=== PATIENT | male | born 1975 | race Caucasian/White ===

== ENCOUNTER 2023-07-21 11:43 | Day surgery (SDC) | payer MEDICAID ==
[2023-07-21] VITALS (11 sets, daily range): BP systolic 132–153; BP diastolic 78–99; PULSE 77–90; RESP 14–16; TEMP 98.1; O2SAT 94–100
[~2023-07-21] VITALS: Ht 170.2 cm; Wt 79.5 kg
[2023-07-21] MEDS ORDERED: NO HOME MEDS (11:59)
[2023-07-21 12:49] LABS: BASOPHILS % (AUTO) 0.4 % (0-1); EOSINOPHILS # (AUTO) 0.2 X10'3 (0-0.9); EOSINOPHILS % (AUTO) 1.8 % (0-6); HEMATOCRIT 42.7 % (42.0-52.0); LYMPHOCYTES # (AUTO) 2.3 X10'3 (1.1-4.8); LYMPHOCYTES % (AUTO) 27.1 % (21-51); MEAN CORPUSCULAR HEMOGLOBIN 30.6 PG (27.0-31.0); MEAN CORPUSCULAR VOLUME 87.4 FL (78-98); MEAN PLATELET VOLUME 7.8 FL (7.4-10.4); MONOCYTES # (AUTO) 0.7 X10'3 (0-0.9); MONOCYTES % (AUTO) 8.1 % (2-12); NEUTROPHILS # (AUTO) 5.2 X10'3 (1.8-7.7); NEUTROPHILS % (AUTO) 62.6 % (42-75); PLATELET COUNT 243 X10'3 (140-440); RED BLOOD COUNT 4.89 X10'6 (4.70-6.10); RED CELL DISTRIBUTION WIDTH 13.3 % (11.5-14.5); WHITE BLOOD COUNT 8.4 X10'3 (4.5-11.0)
[2023-07-21] MEDS ORDERED: LIDOcaine 1% (10mg/ml)w/preservative inj. 20ml MDV ONE (12:59)
[2023-07-21] MEDS ORDERED: gelatin sponge, absorbable (Gelfoam 12-7MM) sponge TP ONE (13:00)
[2023-07-21 13:01] LABS: APTT 29 SECONDS (22-32); PROTHROMBIN TIME 10.6 SECONDS (9.0-12.0)
[2023-07-21] MEDS ORDERED: fentaNYL/PF 50MCG/1 ML 2ML syringe ONE (13:08)
[2023-07-21] MEDS ORDERED: midazolam 1 mg/ML 2ml injection ONE (13:08)
[2023-07-21] MEDS ORDERED: HYDROcodone/acetaminophen 5mg/325mg tablet PO PRN ×2 (13:50)
== END 2023-07-21 15:15 | disposition home or self-care (01) ==
LOC: SSTAY O 11:43
PROVIDERS: ATTEND Radiology Vascular & Interventional Radiology
DX: R59.0 Localized enlarged lymph nodes (principal); Z79.82 Long term (current) use of aspirin; Z79.01 Long term (current) use of anticoagulants
CPT/HCPCS: 36415; 38505; 77012; 85025; 85610; 85730; 99152; 99153; J2250; J3010; J3490; J7030; 49180; A4620